=== PATIENT | male | born 1990 | race Caucasian/White ===

== ENCOUNTER 2017-07-07 13:46 | Outpatient (CLI) | payer OTHER ==
[2017-07-07 14:15] LABS: BASOPHILS % 1.3 (0.0-1.5); EOSINOPHILS % 2.7 % (0.0-6.8); MEAN CORPUSCULAR HEMOGLOBIN 29.9 pg (28.0-34.0); MEAN CORPUSCULAR VOLUME 86.7 fl (80.0-100.0); MONOCYTES % 5.1 % (0.0-11.0); NEUTROPHILS # 7.7 # k/uL (1.4-7.7)
[2017-07-07 14:43] LABS: eGFR (African) > 60; eGFR (Non-African) > 60
== END 2017-07-07 13:47 ==
LOC: LAB 13:46
PROVIDERS: ATTEND Physician Assistant
DX: L40.0 Psoriasis vulgaris (principal); Z79.899 Other long term (current) drug therapy
CPT/HCPCS: 36415; 80053; 85025; 86480; 86703; 86803; 87340

== ENCOUNTER 2017-11-13 17:45 | Emergency (ER) | payer OTHER ==
[2017-11-13] MEDS ORDERED: DIPH,PERTUSS(ACELL),TET VAC/PF 0.5 ML DISP.SYRIN IM ONE (18:03)
[2017-11-13] MEDS ORDERED: NEOMYCIN SU/BACITRAC ZN/POLY 1 EACH OINT.PACK TP ONE (18:03)
[2017-11-13 18:34] VITALS: BP 142/86
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
== END 2017-11-13 18:29 | disposition home or self-care (01) ==
LOC: ED 17:45
DX: S50.312A Abrasion of left elbow, initial encounter (principal); V49.9XXA Car occupant (driver) (passenger) injured in unspecified traffic accident, initial encounter; Z23 Encounter for immunization
CPT/HCPCS: 90471; 90715; 99282